=== PATIENT | female | born 1960 | race Caucasian/White ===

== ENCOUNTER → 2024-01-26 06:32 | Day surgery (SDC) | payer OTHER, SELFPAY | LOC: GI 06:32 | PROVIDERS: ATTENDING PHYSICIAN Internal Medicine Gastroenterology | DX: Z12.11 Encounter for screening for malignant neoplasm of colon (principal); Z86.010 Personal history of colon polyps; Z87.19 Personal history of other diseases of the digestive system; K63.5 Polyp of colon; K29.50 Unspecified chronic gastritis without bleeding; K31.A0 Gastric intestinal metaplasia, unspecified; K21.9 Gastro-esophageal reflux disease without esophagitis | CPT/HCPCS: 45385; 43239; 88305; 88342 ==

== ENCOUNTER → 2024-05-06 06:21 | Day surgery (SDC) | payer OTHER, SELFPAY | LOC: GI 06:21 | PROVIDERS: ATTENDING PHYSICIAN Internal Medicine Gastroenterology | DX: Z12.11 Encounter for screening for malignant neoplasm of colon (principal); K64.8 Other hemorrhoids; D12.5 Benign neoplasm of sigmoid colon; K63.5 Polyp of colon; D12.0 Benign neoplasm of cecum; D12.3 Benign neoplasm of transverse colon; Z86.010 Personal history of colon polyps; Z80.0 Family history of malignant neoplasm of digestive organs | CPT/HCPCS: 45385; 45380; 88305 ==

== ENCOUNTER 2024-09-18 10:49 | Emergency (ER) | payer OTHER, SELFPAY ==
[2024-09-18 11:19] VITALS: BP 154/91
--- NOTE | 2024-09-18 11:19 | ED.MUSCINJ ---
HPI-Injury
<Ian Martinez PA-C - Last Filed: 09/18/24 11:20>
General
Chief Complaint: Musculo-Skeletal Complaint
Time Seen by Provider: 09/18/24 12:20
<Teodoro Resendiz Jr., PA-C - Last Filed: 09/18/24 13:19>
General
Source: patient
Exam Limitations: none
Nursing documentation reviewed up to this point in time: agreed with
History of Present Illness-Injury
Is this injury a work related problem?: No
Is pt an associate of [facility]?: No
Initial Injury comments:
64-year-old female past medical history of anemia migraines presenting to the emergency department today with concerns of right great toe swelling discomfort after slipping and hitting her toe on a surface yesterday. Trouble walking today secondary
to pain. Denies additional concerns no additional injuries.
ED Provider Triage
<Ian Martinez PA-C - Last Filed: 09/18/24 11:20>
-
Patient seen by provider in Triage?: Seen in Triage
64-year-old female presents complaining of right large toe pain. She slipped and injured her right large toe playing with her grandson yesterday
The large toe on the right side is slightly erythematous and swollen. Looks nontoxic at triage x-rays of the right foot ordered
Medical screening exam performed by healthcare provider triage. She wants further evaluation
Past History
<MAIA Cox Last Filed: 09/18/24 11:20>
Past History
ED Past Medical History: GERD, Psychiatric (Anxiety/depression) and Other (Psoriasis, ADHD, insomnia, chronic back pain, migraine headaches)
ED Past Surgical History: Orthopedic (Bilateral ankle fracture repair)
Social History
Tobacco: Smoker
Alcohol: None
Drug: None
Personal:
Living: with family
Employment: Disabled
Family History
Family History: Other (Noncontributory)
Review of Systems
<Teodoro Resendiz Jr., PA-C - Last Filed: 09/18/24 13:19>
Review of Systems
Allergies reviewed?: Yes
All Other Systems: ROS reviewed and negative except as documented in HPI and ROS
Phy Exam
<Teodoro Resendiz Jr., PA-C - Last Filed: 09/18/24 13:19>
Physical Exam
Physical Exam:
GENERAL: Alert , in no apparent distress
EYE: pupils equal and reactive
NECK: Supple, no significant adenopathy.
ENT: o/p clr, mmm.
CARDIAC: Regular rate and rhythm .
LUNGS: Clear breath sounds bilaterally, no acute respiratory distress, no wheezes/rales/rhonchi
ABDOMEN: Soft, without focal tenderness, no r/g, no cvat
NEUROLOGICAL: Alert and oriented, no focal neuro deficits
SKIN: Warm and dry, skin intact.
MUSCULOSKELETAL: Small amount swelling and redness to the right sided great toe good range of motion. Does have a dropfoot at baseline claims this is at baseline. Normal distal cap refill and dorsalis pedis . Given a walking boot., well perfused.
PSYCH: Normal and appropriate interaction.
Injury Course
<Ian Martinez PA-C - Last Filed: 09/18/24 11:20>
Orders/Labs/Results
Orders:
Orders
09/18/24 11:19
CR Foot - Right Min 3 Views Urgent
Comment:
Reason For Exam: fall, large toe pain
09/18/24 12:50
boot [Ortho Boot Right- Treatment] ONCE
Short or tall?: Short
<Teodoro Resendiz Jr., PA-C - Last Filed: 09/18/24 13:19>
Orders/Labs/Results
Orders:
Orders
09/18/24 11:19
CR Foot - Right Min 3 Views Urgent
Comment:
Reason For Exam: fall, large toe pain
09/18/24 12:50
boot [Ortho Boot Right- Treatment] ONCE
Short or tall?: Short
<Teodoro Resendiz Jr., PA-C - Last Filed: 09/18/24 13:19>
MDM/Problems Addressed
MDM/Problems Addressed:
64-year-old female presenting after minor injury to the right great toe. She does have swelling and redness to the right sided great toe good range of motion. Does have a dropfoot at baseline claims this is at baseline. Normal distal cap refill
and dorsalis pedis pulses x-ray showing some chronic findings which she was referred to podiatry for but otherwise no evidence of acute pathology return precautions given. Given a walking boot.,
<Teodoro Resendiz Jr., PA-C - Last Filed: 09/18/24 13:19>
*Critical Care Note
Total Time (30-74mins, 75-104mins- exclusive of procedures): Not Applicable
ED Attending Note
<Ian Martinez PA-C - Last Filed: 09/18/24 11:20>
-
Portions of this chart may have been created with voice recognition software.� Occasional wrong word or��sound alike� substitutions may have occurred due to the inherent limitations of voice recognition software.
Discharge Plan
Departure
Patient Disposition: Home (Routine Discharge)
Date of Disposition: 09/18/24
Time of Disposition: 13:05
Patient with high blood pressure during this ER visit?: No
Condition: Good
Covid-19: Not Applicable
Discharge Problem:
Injury of toe
Instructions: Sprain (DC)
Prescriptions:
No Action
tramadol 50 mg tablet
50 mg PO Q8H PRN (Reason: back pain) Qty: 10 0RF
lidocaine 5 % adhesive patch,medicated
1 patch topical DAILY PRN (Reason: pain) Qty: 15 0RF
Rx Instructions:
remove after 12 hrs
cyclobenzaprine 10 mg tablet
10 mg PO Q8H PRN (Reason: muscle spasm) Qty: 10 0RF
Referrals:
Stan Lopez DPM [Specified Professional Personl] - Follow up in 5-7 days
Leanne Fitzgerald CRNP [Family Provider] -
Activity Restrictions/Additional Instructions:
You came to the emergency department today with concerns of a toe injury. Here you had an x-ray without acute fracture but did show chronic findings. Please help close with the foot doctor for further assessment of this. Return to the emergency
department any worsening, new or concerning symptoms.
Interventions
Interventions:
*Risk Screen - Suicide Last Done: 09/18/24 11:19
*General Assessment Last Done: 09/18/24 11:19
*Neglect/Abuse Screening Last Done: 09/18/24 11:19
*ED COVID-19 Vaccine History Last Done: 09/18/24 12:53
ED-Musculoskeletal Assessment Last Done: 09/18/24 12:53
Discharge Date and Time
Print Language: FINNISH
== END 2024-09-18 13:25 | disposition home or self-care (01) ==
LOC: EMR 10:49
PROVIDERS: EMERGENCY PHYSICIAN Student in an Organized Health Care Education/Training Program; FAMILY PHYSICIAN Nurse Practitioner Family
DX: S99.921A Unspecified injury of right foot, initial encounter (principal); W22.8XXA Striking against or struck by other objects, initial encounter; F17.200 Nicotine dependence, unspecified, uncomplicated; K21.9 Gastro-esophageal reflux disease without esophagitis; M21.371 Foot drop, right foot
CPT/HCPCS: 99283; 73630